=== PATIENT | male | born 1940 | race Caucasian/White ===

== ENCOUNTER → 2023-08-04 | Outpatient (CLI) | payer MEDICARE, SELFPAY | END | disposition home or self-care (01) | PROVIDERS: PCP Nurse Practitioner Family; Referring Provider Internal Medicine Critical Care Medicine; Visit Provider Internal Medicine Critical Care Medicine | DX: R06.02 Shortness of breath (principal) | CPT/HCPCS: 94060; 94726; 94729 ==

== ENCOUNTER → 2023-08-11 | Outpatient (CLI) | payer MEDICARE, SELFPAY ==
[2023-08-11 12:30] VITALS: PULSE 58; PULSE 62; PULSE 63; PULSE 71; PULSE 76; PULSE 77; PULSE 79; O2SAT 92; O2SAT 93; O2SAT 94; O2SAT 95
--- NOTE | 2023-08-13 05:49 | PCM.PSN.6M ---
PSN 6 Minute Walk Test 6 Minute Walk Test 6 Minute Walk Test: 6 Minute Walk Test PSN:6-Minute Walk Test Start: 08/11/23 13:04 Freq: Status: Active Protocol: [id number] Document 08/11/23 12:30 EW (Rec: 08/11/23 13:10 EW Desktop) 6 Minute Walk Test Date Performed 08/11/23 Time Performed 12:30 Height 6 ft 3 in Weight: 127.913 kg Weight in Pounds 282.[address]: Skyler Feliciano Assistive device used: Walker Pre-test Oxygen Delivery Method Room Air Pulse Ox 94 Pulse Rate (60-100) 77 Dyspnea Perla Scale (0-10) 2 Exertion Perla Scale (6-20) 11 1st minute Oxygen Delivery Method Room Air Pulse Ox 94 Pulse Rate (60-100) 58 L 2nd minute Oxygen Delivery Method Room Air Pulse Ox 94 Pulse Rate (60-100) 62 3rd minute Oxygen Delivery Method Room Air Pulse Ox 95 Pulse Rate (60-100) 79 Number of Rests Taken 1 4th minute Oxygen Delivery Method Room Air Pulse Ox 92 Pulse Rate (60-100) 71 Number of Rests Taken 1 5th minute Oxygen Delivery Method Room Air Pulse Ox 93 Pulse Rate (60-100) 76 6th minute Oxygen Delivery Method Room Air Pulse Ox 92 Pulse Rate (60-100) 71 Number of Rests Taken 1 Post-test Oxygen Delivery Method Room Air Pulse Ox 93 Pulse Rate (60-100) 63 Dyspnea Perla Scale (0-10) 2 Exertion Perla Scale (6-20) 16 Full Laps Walked 6 Partial Lap, Number of Tiles Walked 0 Total Distance Walked (ft) 354 Interpretation Interpretation: The patient was able to ambulate only 354 feet over the course of 6 minutes on room air with the assistance of a walker and 3 breaks. The patient experienced no significant desaturation or tachycardia. These findings are consistent with a musculoskeletal limitation exercise tolerance. Recommendations Recommendations: No supplemental oxygen is indicated at this time. However, repeat testing may be indicated if patient becomes more mobile
== END | disposition home or self-care (01) ==
LOC: PSN 12:32
PROVIDERS: PCP Nurse Practitioner Family; Referring Provider Internal Medicine Critical Care Medicine; Visit Provider Internal Medicine Critical Care Medicine
DX: R06.02 Shortness of breath (principal)
CPT/HCPCS: 94618